=== PATIENT | female | born 1995 | race African-American/Black ===

== ENCOUNTER 2021-03-30 10:58 | Emergency (ER) | payer MEDICAID, OTHER | END 2021-03-30 12:48 | disposition home or self-care (01) | LOC: CSHERS 10:58 | DX: O99.512 Diseases of the respiratory system complicating pregnancy, second trimester (principal); J10.1 Influenza due to other identified influenza virus with other respiratory manifestations; Z3A.22 22 weeks gestation of pregnancy | CPT/HCPCS: 87804; 99283 ==

== ENCOUNTER 2021-05-08 10:07 | Observation (INO) | payer OTHER ==
[2021-05-08] MEDS ORDERED: hydrALAZINE 20 MG/ML VIAL SLOW IVP PRN (10:59)
[2021-05-08 11:02] VITALS: BMI 44.8
[2021-05-08] MEDS: Acetaminophen 500 MG TAB PO PRN ×2 (11:08→21:28)
[2021-05-08] MEDS ORDERED: guaiFENesin ER 600 MG TAB PO SCH ×2 (12:00→21:00)
[2021-05-08] MEDS: Ondansetron ODT 4 MG TAB SL PRN (13:30)
[2021-05-08] MEDS ORDERED: Ondansetron PF 4 MG/2 ML Vial IVP PRN (14:48)
[2021-05-08] MEDS ORDERED: Lactated Ringer's 1,000 ML IV SCH (15:00)
[2021-05-08] MEDS ORDERED: Promethazine HCl 25 MG/ML VIAL IM SCH (15:00)
[2021-05-08] MEDS: Lactated Ringer's 1,000 ML IV SCH (18:00)
[2021-05-08] MEDS ORDERED: Docusate 100 MG CAP PO PRN (20:41)
[2021-05-08] MEDS ORDERED: Promethazine HCl 25 MG/ML VIAL IM PRN (20:41)
[2021-05-08] MEDS: guaiFENesin ER 600 MG TAB PO SCH (21:25)
[2021-05-09] MEDS: Lactated Ringer's 1,000 ML IV SCH ×3 (02:30→08:43)
[2021-05-09 08:37] VITALS: BP 128/58; TEMP 98
[2021-05-09] MEDS: guaiFENesin ER 600 MG TAB PO SCH (08:43)
[2021-05-09] MEDS: Ondansetron ODT 4 MG TAB SL PRN (08:43)
== END 2021-05-09 12:20 | disposition home health service (06) ==
LOC: CSHLD/OP 10:07 → CSHANTE 21:14 → INTOOBSV 21:14
PROVIDERS: ADMIT Emergency Medicine; ATTEND Emergency Medicine
DX: O98.512 Other viral diseases complicating pregnancy, second trimester (principal); U07.1 COVID-19; O21.2 Late vomiting of pregnancy; Z3A.27 27 weeks gestation of pregnancy
CPT/HCPCS: 96372; G0378; J2550; J7120; Q0162

== ENCOUNTER 2021-06-19 23:48 | Day surgery (SDC) | payer OTHER ==
[2021-06-20] MEDS ORDERED: hydrALAZINE 20 MG/ML VIAL SLOW IVP PRN (00:43)
[2021-06-20] MEDS ORDERED: Acetaminophen 500 MG TAB PO PRN (01:29)
[2021-06-20] MEDS ORDERED: Lactated Ringer's 1,000 ML IV SCH (01:30)
[2021-06-20 03:07] LABS: ALT (SGPT) 7 U/L (8-55); AST (SGOT) 9 U/L (5-34); Albumin 3.1 g/dL (3.5-5.0); Alkaline Phosphatase 90 U/L (40-110); Anion Gap 12 mmol/L (10-20); BUN (Urea Nitrogen) 5 mg/dL (7.0-18.7); Bilirubin, Total 0.2 mg/dL (0.2-1.2); Calc. Creatinine Clearance 0 mL/min (70-130); Calcium 8.5 mg/dL (7.8-10.44); Carbon Dioxide 25 mmol/L (22-29); Chloride 104 mmol/L (98-107); Glucose 82 mg/dL (70-105); Potassium 3.1 mmol/L (3.5-5.1); Protein, Total 6.1 g/dL (6.0-8.3); Sodium 138 mmol/L (136-145)
[2021-06-20 03:11] LABS: #Basophils 0.1 10x3/uL (0.0-0.2); #Eosinphils 0.2 10x3/uL (0.0-0.5); #Monocytes 0.6 10x3/uL (0.0-1.1); #Neutrophils 4.9 10x3/uL (1.5-8.4); %Basophils 0.8 % (0.0-2.0); %Eosinophils 1.7 % (0.0-6.0); %Lymphocytes 38.3 % (18.0-47.0); %Monocytes 5.9 % (0.0-10.0); Hemoglobin 10.5 g/dL (12.0-15.5); Mean Corpuscular HGB CONC 34.4 g/dL (32.0-36.0); Mean Corpuscular Hemoglobin 30.4 pg (27.0-33.0); Mean Corpuscular Volume 88.4 fl (81.6-98.3); Mean Platelet Volume 12.3 fl (7.4-10.4); Platelet Count 115 10x3/uL (150-450); RBC Distribution Width 13.2 % (11.5-14.5); Red Blood Cell (RBC) Count 3.45 10x6/uL (3.90-5.03); White Blood Cell (WBC) Count 9.3 10x3/uL (3.5-10.5)
== END 2021-06-20 07:11 | disposition home or self-care (01) ==
LOC: CSHLD/OP 23:48
PROVIDERS: ATTEND Student in an Organized Health Care Education/Training Program
DX: O10.913 Unspecified pre-existing hypertension complicating pregnancy, third trimester (principal); O99.891 Other specified diseases and conditions complicating pregnancy; H53.8 Other visual disturbances; R10.11 Right upper quadrant pain; O09.213 Supervision of pregnancy with history of pre-term labor, third trimester; Z3A.33 33 weeks gestation of pregnancy
CPT/HCPCS: 80053; 81003; 82570; 85025; 96360; 96361; 99283

== ENCOUNTER 2022-07-17 22:11 | Inpatient (IN) | payer OTHER ==
[2022-07-17] MEDS ORDERED: Acetaminophen 500 MG TAB PO PRN (22:17)
[2022-07-17] MEDS ORDERED: hydrALAZINE 20 MG/ML VIAL SLOW IVP PRN (22:17)
[2022-07-17] MEDS ORDERED: Promethazine HCl 25 MG/ML VIAL IM PRN (22:17)
[2022-07-17] MEDS ORDERED: Butorphanol Tartrate 1 MG/ML VIAL SLOW IVP PRN (22:17)
[2022-07-17 22:32] VITALS: BMI 50.9
[2022-07-17] MEDS ORDERED: Fentanyl 100 MCG/2 ML VIAL ONE (23:02)
[2022-07-17] MEDS ORDERED: Lactated Ringer's 1,000 ML IV SCH (23:30)
[2022-07-17] MEDS ORDERED: Aspirin 81 mg Enteric Coated Tablet PO SCH (23:59)
[2022-07-18] MEDS ORDERED: Lactated Ringer's 1,000 ML IV SCH (00:30)
[2022-07-18] MEDS: Cefepime 2 GM in Sodium Chloride 0.9% 100 ML IVPB SCH ×3 (01:54→18:23)
[2022-07-18] MEDS: Fentanyl 100 MCG/2 ML VIAL SLOW IVP PRN ×9 (02:04→23:30)
[2022-07-18] MEDS: VANCOMYCIN 1.5 GM in Sodium Chloride 0.9% 500 ML IVPB SCH ×3 (02:44→19:14)
[2022-07-18] MEDS ORDERED: Lidocaine 1% (PF) 30 ML VIAL ONE (03:15)
[2022-07-18 04:33] LABS: #Basophils 0.1 10x3/uL (0.0-0.2); #Eosinphils 0.1 10x3/uL (0.0-0.5); #Monocytes 1.2 10x3/uL (0.0-1.1); #Neutrophils 13.2 10x3/uL (1.5-8.4); %Basophils 0.3 % (0.0-2.0); %Eosinophils 0.8 % (0.0-6.0); %Lymphocytes 15.2 % (18.0-47.0); %Monocytes 7.1 % (0.0-10.0); Hemoglobin 10.3 g/dL (12.0-15.5); Mean Corpuscular HGB CONC 33.3 g/dL (32.0-36.0); Mean Corpuscular Hemoglobin 28.5 pg (27.0-33.0); Mean Corpuscular Volume 85.4 fl (81.6-98.3); Mean Platelet Volume 12.3 fl (7.4-10.4); Platelet Count 131 10x3/uL (150-450); RBC Distribution Width 12.8 % (11.5-14.5); Red Blood Cell (RBC) Count 3.62 10x6/uL (3.90-5.03); White Blood Cell (WBC) Count 17.4 10x3/uL (3.5-10.5)
[2022-07-18 04:49] LABS: ALT (SGPT) 36 U/L (8-55); AST (SGOT) 40 U/L (5-34); Albumin 3.2 g/dL (3.5-5.0); Alkaline Phosphatase 128 U/L (40-110); Anion Gap 14 mmol/L (10-20); BUN (Urea Nitrogen) Less than 4 mg/dL (7.0-18.7); Bilirubin, Total 1.2 mg/dL (0.2-1.2); Calc. Creatinine Clearance 286 mL/min (70-130); Calcium 8.6 mg/dL (7.8-10.44); Carbon Dioxide 19 mmol/L (22-29); Chloride 104 mmol/L (98-107); Estimated GFR 125; Globulin 3.5 g/dL (2.4-3.5); Glucose 119 mg/dL (70-105); Protein, Total 6.7 g/dL (6.0-8.3); Sodium 134 mmol/L (136-145)
[2022-07-18] MEDS: Potassium Chloride 20 MEQ in Premix Bag 1 BAG IVPB SCH ×3 (08:00→11:48)
[2022-07-18] MEDS ORDERED: Potassium Chloride 20 MEQ in Premix Bag 1 BAG IVPB SCH ×2 (08:00→13:00)
[2022-07-18] MEDS: Aspirin 81 mg Enteric Coated Tablet PO SCH (08:51)
[2022-07-18] MEDS: Prenatal Vitamin 1 TAB PO SCH (08:51)
[2022-07-18] MEDS ORDERED: Sodium Chloride 0.9% 100 ML ONE (10:59)
[2022-07-18] MEDS: Lactated Ringer's 1,000 ML IV SCH ×2 (11:45→15:39)
[2022-07-18] MEDS ORDERED: Potassium Bicarbonate/Cit Ac 20 MEQ TAB PO SCH (12:00)
[2022-07-18] MEDS: Ondansetron PF 4 MG/2 ML Vial IVP PRN ×2 (12:23→20:50)
[2022-07-18 18:25] LABS: Vancomycin, Trough 13.9 ug/mL
[2022-07-19] MEDS: Cefepime 2 GM in Sodium Chloride 0.9% 100 ML IVPB SCH ×3 (01:23→17:49)
[2022-07-19] MEDS ORDERED: Famotidine 20 MG TAB PO SCH ×2 (02:00→20:00)
[2022-07-19] MEDS: Lactated Ringer's 1,000 ML IV SCH ×4 (02:03→20:45)
[2022-07-19] MEDS: VANCOMYCIN 1.5 GM in Sodium Chloride 0.9% 500 ML IVPB SCH ×3 (02:37→18:36)
[2022-07-19 04:17] LABS: ALT (SGPT) 36 U/L (8-55); AST (SGOT) 34 U/L (5-34); Albumin 2.9 g/dL (3.5-5.0); Alkaline Phosphatase 114 U/L (40-110); Anion Gap 13 mmol/L (10-20); BUN (Urea Nitrogen) Less than 4 mg/dL (7.0-18.7); Bilirubin, Total 0.7 mg/dL (0.2-1.2); Calc. Creatinine Clearance 290 mL/min (70-130); Calcium 8.7 mg/dL (7.8-10.44); Carbon Dioxide 20 mmol/L (22-29); Chloride 108 mmol/L (98-107); Estimated GFR 125; Globulin 3.3 g/dL (2.4-3.5); Glucose 115 mg/dL (70-105); Potassium 3.1 mmol/L (3.5-5.1); Protein, Total 6.2 g/dL (6.0-8.3); Sodium 138 mmol/L (136-145)
[2022-07-19 04:22] LABS: #Basophils 0.1 10x3/uL (0.0-0.2); #Eosinphils 0.3 10x3/uL (0.0-0.5); #Monocytes 0.7 10x3/uL (0.0-1.1); #Neutrophils 8.1 10x3/uL (1.5-8.4); %Basophils 0.5 % (0.0-2.0); %Eosinophils 2.2 % (0.0-6.0); %Lymphocytes 24.2 % (18.0-47.0); %Monocytes 5.8 % (0.0-10.0); %Neutrophils 66.7 % (40.0-75.0); Hemoglobin 9.7 g/dL (12.0-15.5); Mean Corpuscular HGB CONC 33.1 g/dL (32.0-36.0); Mean Corpuscular Hemoglobin 28.8 pg (27.0-33.0); Mean Corpuscular Volume 86.9 fl (81.6-98.3); Mean Platelet Volume 12.4 fl (7.4-10.4); Platelet Count 127 10x3/uL (150-450); RBC Distribution Width 13.1 % (11.5-14.5); Red Blood Cell (RBC) Count 3.37 10x6/uL (3.90-5.03); White Blood Cell (WBC) Count 11.9 10x3/uL (3.5-10.5)
[2022-07-19] MEDS: Fentanyl 100 MCG/2 ML VIAL SLOW IVP PRN ×2 (04:26→07:32)
[2022-07-19] MEDS: Prenatal Vitamin 1 TAB PO SCH (07:33)
[2022-07-19] MEDS: Aspirin 81 mg Enteric Coated Tablet PO SCH (07:34)
[2022-07-19] MEDS ORDERED: Potassium Chloride 20 MEQ TAB PO SCH (08:15)
[2022-07-19] MEDS ORDERED: Potassium Bicarbonate/Cit Ac 20 MEQ TAB PO SCH (09:00)
[2022-07-19 09:18] LABS: Magnesium 1.6 mg/dL (1.6-2.6)
[2022-07-19] MEDS: HYDROcodone/Acetaminophen 5/325 mg Tablet PO PRN ×2 (09:21→16:09)
[2022-07-19] MEDS ORDERED: Acetaminophen 500 MG TAB PO SCH (14:00)
[2022-07-19] MEDS ORDERED: Calcium Carbonate 500 MG ChewTAB PO PRN (19:57)
[2022-07-19] MEDS ORDERED: Calcium Carbonate 500 MG ChewTAB PO SCH (20:00)
[2022-07-19] MEDS: Ondansetron PF 4 MG/2 ML Vial IVP PRN (20:08)
[2022-07-19] MEDS: Acetaminophen 500 MG TAB PO PRN (23:30)
[2022-07-20] MEDS: Lactated Ringer's 1,000 ML IV SCH (00:15)
[2022-07-20 01:57] LABS: Vancomycin, Trough 15.5 ug/mL
[2022-07-20] MEDS: Cefepime 2 GM in Sodium Chloride 0.9% 100 ML IVPB SCH (02:16)
[2022-07-20] MEDS: VANCOMYCIN 1.5 GM in Sodium Chloride 0.9% 500 ML IVPB SCH (03:21)
[2022-07-20 04:25] LABS: #Basophils 0.1 10x3/uL (0.0-0.2); #Eosinphils 0.4 10x3/uL (0.0-0.5); #Monocytes 0.6 10x3/uL (0.0-1.1); #Neutrophils 4.3 10x3/uL (1.5-8.4); %Basophils 0.6 % (0.0-2.0); %Eosinophils 4.6 % (0.0-6.0); %Lymphocytes 36.5 % (18.0-47.0); %Monocytes 7.4 % (0.0-10.0); %Neutrophils 50.2 % (40.0-75.0); Hemoglobin 9.3 g/dL (12.0-15.5); Mean Corpuscular HGB CONC 33.5 g/dL (32.0-36.0); Mean Corpuscular Hemoglobin 28.9 pg (27.0-33.0); Mean Corpuscular Volume 86.3 fl (81.6-98.3); Mean Platelet Volume 12.1 fl (7.4-10.4); Platelet Count 119 10x3/uL (150-450); RBC Distribution Width 12.7 % (11.5-14.5); Red Blood Cell (RBC) Count 3.22 10x6/uL (3.90-5.03); White Blood Cell (WBC) Count 8.6 10x3/uL (3.5-10.5)
[2022-07-20 04:37] LABS: ALT (SGPT) 28 U/L (8-55); AST (SGOT) 23 U/L (5-34); Albumin 2.6 g/dL (3.5-5.0); Alkaline Phosphatase 112 U/L (40-110); Anion Gap 12 mmol/L (10-20); BUN (Urea Nitrogen) Less than 4 mg/dL (7.0-18.7); Bilirubin, Total 0.5 mg/dL (0.2-1.2); Calc. Creatinine Clearance 286 mL/min (70-130); Calcium 8.4 mg/dL (7.8-10.44); Carbon Dioxide 24 mmol/L (22-29); Chloride 107 mmol/L (98-107); Estimated GFR 125; Globulin 3.2 g/dL (2.4-3.5); Glucose 87 mg/dL (70-105); Potassium 3.2 mmol/L (3.5-5.1); Protein, Total 5.8 g/dL (6.0-8.3); Sodium 140 mmol/L (136-145)
[2022-07-20 07:37] VITALS: BP 121/70; TEMP 98.5
[2022-07-20] MEDS ORDERED: Clindamycin 150 MG CAP PO SCH (09:00)
[2022-07-20] MEDS ORDERED: Labetalol HCl 100 MG TAB PO SCH (09:00)
[2022-07-20] MEDS ORDERED: Potassium Chloride 20 MEQ TAB PO SCH (09:00)
[2022-07-20] MEDS: Acetaminophen 500 MG TAB PO PRN (10:28)
[2022-07-20] MEDS: Prenatal Vitamin 1 TAB PO SCH (10:29)
[2022-07-20] MEDS: Aspirin 81 mg Enteric Coated Tablet PO SCH (10:29)
== END 2022-07-20 11:15 | disposition home or self-care (01) | DRG 817 ==
LOC: CSHLD/OP 22:11 → CSHLD 22:17 → OBSVTOIN 22:18 → CSHLD 07-18 00:19 → UNDOADMOB 07-18 00:19 → CSHLD 07-18 05:54 → CSHANTE 07-18 05:54
PROVIDERS: ADMIT Family Medicine; ATTEND Family Medicine
PROC: 0C900ZZ Drainage of Upper Lip, Open Approach (ICD-10-PCS; principal; 2022-07-18)
PROC: 3E03329 Introduction of Other Anti-infective into Peripheral Vein, Percutaneous Approach (ICD-10-PCS; 2022-07-18)
DX: O98.813 Other maternal infectious and parasitic diseases complicating pregnancy, third trimester (principal); A41.9 Sepsis, unspecified organism; L02.01 Cutaneous abscess of face; L03.211 Cellulitis of face; O10.913 Unspecified pre-existing hypertension complicating pregnancy, third trimester; O99.113 Other diseases of the blood and blood-forming organs and certain disorders involving the immune mechanism complicating pregnancy, third trimester; O99.713 Diseases of the skin and subcutaneous tissue complicating pregnancy, third trimester; O99.213 Obesity complicating pregnancy, third trimester; O99.343 Other mental disorders complicating pregnancy, third trimester; O99.353 Diseases of the nervous system complicating pregnancy, third trimester; F90.9 Attention-deficit hyperactivity disorder, unspecified type; D69.6 Thrombocytopenia, unspecified; E66.9 Obesity, unspecified; K13.0 Diseases of lips; O43.893 Other placental disorders, third trimester; E87.6 Hypokalemia; G43.909 Migraine, unspecified, not intractable, without status migrainosus; O99.820 Streptococcus B carrier state complicating pregnancy; Z79.899 Other long term (current) drug therapy; Z98.890 Other specified postprocedural states; Z3A.36 36 weeks gestation of pregnancy
CPT/HCPCS: 10060; 36415; 80053; 80202; 83735; 85025; 97139; 99285; J0595; J0692; J2405; J3010; J3480; J3490; J7030; J7120

== ENCOUNTER 2022-07-25 18:00 | Inpatient (IN) | payer OTHER ==
[2022-07-26 03:24] VITALS: BMI 50.9
[2022-07-26] MEDS ORDERED: Misoprostol 200 MCG TAB PR PRN (03:54)
[2022-07-26] MEDS ORDERED: Lidocaine 1% (PF) 30 ML VIAL SC PRN (03:54)
[2022-07-26] MEDS ORDERED: Acetaminophen 500 MG TAB PO PRN (03:54)
[2022-07-26] MEDS ORDERED: Promethazine HCl 25 MG/ML VIAL IM PRN ×2 (03:54→06:01)
[2022-07-26] MEDS ORDERED: Ondansetron PF 4 MG/2 ML Vial IVP PRN ×3 (03:54→16:56)
[2022-07-26] MEDS ORDERED: hydrALAZINE 20 MG/ML VIAL SLOW IVP PRN ×2 (03:54→16:56)
[2022-07-26] MEDS ORDERED: Carboprost 250 MCG/ML AMP IM PRN (03:54)
[2022-07-26] MEDS ORDERED: Tranexamic Acid 1,000 MG/10 ML VIAL IVP PRN (03:54)
[2022-07-26] MEDS ORDERED: Penicillin G Potassium 5 MILL.UNITS in Sodium Chloride 0.9% 100 ML IVPB SCH (04:00)
[2022-07-26] MEDS ORDERED: NS w/ Oxytocin 30 units 500 ML IV SCH ×3 (04:00→16:56)
[2022-07-26] MEDS ORDERED: Lactated Ringer's 1,000 ML IV SCH (04:00)
[2022-07-26 04:17] LABS: Hemoglobin 10.4 g/dL (12.0-15.5); Mean Corpuscular HGB CONC 33.7 g/dL (32.0-36.0); Mean Corpuscular Hemoglobin 28.6 pg (27.0-33.0); Mean Corpuscular Volume 84.9 fl (81.6-98.3); Mean Platelet Volume 12.2 fl (7.4-10.4); Platelet Count 160 10x3/uL (150-450); RBC Distribution Width 12.8 % (11.5-14.5); Red Blood Cell (RBC) Count 3.64 10x6/uL (3.90-5.03); White Blood Cell (WBC) Count 9.1 10x3/uL (3.5-10.5)
[2022-07-26 04:43] LABS: ALT (SGPT) 110 U/L (8-55); AST (SGOT) 117 U/L (5-34); Albumin 3.3 g/dL (3.5-5.0); Alkaline Phosphatase 129 U/L (40-110); Anion Gap 15 mmol/L (10-20); BUN (Urea Nitrogen) 5 mg/dL (7.0-18.7); Bilirubin, Total 0.5 mg/dL (0.2-1.2); Calc. Creatinine Clearance 294 mL/min (70-130); Calcium 8.9 mg/dL (7.8-10.44); Carbon Dioxide 21 mmol/L (22-29); Chloride 106 mmol/L (98-107); Estimated GFR 126; Globulin 3.2 g/dL (2.4-3.5); Glucose 85 mg/dL (70-105); Potassium 3.5 mmol/L (3.5-5.1); Protein, Total 6.5 g/dL (6.0-8.3); Sodium 138 mmol/L (136-145)
[2022-07-26] MEDS ORDERED: Fentanyl 2 mcg/Bup 0.1% Cadd 100 ML ONE (05:00)
[2022-07-26 05:03] LABS: HBSAg Index 0.14 S/CO (0-0.99); Hep B Surf Ag - L&D Non-Reactive S/CO (NonReactive); Syphilis Antibody Nonreactive (Nonreactive); Syphilis Antibody Index 0.03 S/CO (<1.00 Non-Reactive)
[2022-07-26] MEDS ORDERED: Naloxone HCl 0.4 mg/ml Vial IVP PRN ×2 (06:01)
[2022-07-26] MEDS ORDERED: ePHEDrine Sulfate 50 MG/10 ML VIAL SLOW IVP PRN (06:01)
[2022-07-26] MEDS ORDERED: Lactated Ringer's 500 ML IV PRN (06:01)
[2022-07-26] MEDS ORDERED: Acetaminophen 325 MG TAB PO PRN (06:01)
[2022-07-26] MEDS ORDERED: diphenhydrAMINE 50 MG/ML VIAL IVP PRN (06:01)
[2022-07-26] MEDS ORDERED: Moisturizing Cream (Eucerin) 113 GM JAR TOP PRN (06:01)
[2022-07-26] MEDS ORDERED: Communication Order-Pharmacy FS SCH (06:15)
[2022-07-26] MEDS ORDERED: Fentanyl 2 mcg/Bupivacaine 0.1% Cassette 100 ML EPIDURAL SCH (06:15)
[2022-07-26] MEDS: Penicillin G 2.5 MILL.units 2.5 MILL.UNITS in Premix Bag 1 BAG IVPB SCH ×2 (08:04→12:01)
[2022-07-26] MEDS ORDERED: Labetalol HCl 100 MG TAB PO SCH (09:00)
[2022-07-26] MEDS ORDERED: Aspirin 81 mg Enteric Coated Tablet PO SCH (09:00)
[2022-07-26] MEDS ORDERED: Prenatal Vitamin 1 TAB PO SCH (09:00)
[2022-07-26 12:44] LABS: Creatinine, Urine 282.69 mg/dL (47-110)
[2022-07-26 12:56] LABS: Hemoglobin 10.1 g/dL (12.0-15.5); Mean Corpuscular HGB CONC 32.8 g/dL (32.0-36.0); Mean Corpuscular Hemoglobin 28.5 pg (27.0-33.0); Mean Corpuscular Volume 86.8 fl (81.6-98.3); Mean Platelet Volume 11.9 fl (7.4-10.4); Platelet Count 153 10x3/uL (150-450); RBC Distribution Width 13.2 % (11.5-14.5); Red Blood Cell (RBC) Count 3.55 10x6/uL (3.90-5.03); White Blood Cell (WBC) Count 9.2 10x3/uL (3.5-10.5)
[2022-07-26 13:11] LABS: ALT (SGPT) 116 U/L (8-55); AST (SGOT) 122 U/L (5-34); Albumin 3.3 g/dL (3.5-5.0); Alkaline Phosphatase 127 U/L (40-110); Anion Gap 14 mmol/L (10-20); BUN (Urea Nitrogen) 5 mg/dL (7.0-18.7); Bilirubin, Total 0.6 mg/dL (0.2-1.2); Calc. Creatinine Clearance 277 mL/min (70-130); Calcium 8.7 mg/dL (7.8-10.44); Carbon Dioxide 23 mmol/L (22-29); Chloride 104 mmol/L (98-107); Estimated GFR 124; Globulin 3.6 g/dL (2.4-3.5); Glucose 75 mg/dL (70-105); Potassium 3.4 mmol/L (3.5-5.1); Protein, Total 6.9 g/dL (6.0-8.3); Sodium 138 mmol/L (136-145)
[2022-07-26] MEDS ORDERED: diphenhydrAMINE 25 MG CAP PO PRN (16:56)
[2022-07-26] MEDS ORDERED: Bisacodyl 10 MG SUPP PR PRN (16:56)
[2022-07-26] MEDS ORDERED: Benzocaine-Menthol 82.5 ML CAN TOP PRN (16:56)
[2022-07-26] MEDS ORDERED: Preparation H Ointment 28 GM TUBE PR PRN (16:56)
[2022-07-26] MEDS ORDERED: Misoprostol 200 MCG TAB VAG PRN (16:56)
[2022-07-26] MEDS ORDERED: Milk Of Magnesia 30 ML UDCUP PO PRN (16:56)
[2022-07-26] MEDS ORDERED: Boostrix 0.5 ML (Tdap) VIAL (>/=7 yrs of age) IM ONE (16:56)
[2022-07-26] MEDS ORDERED: Lanolin Ointment 7 GM TUBE TOP PRN (16:56)
[2022-07-26] MEDS: Ferrous Sulfate 325 MG TAB PO SCH (17:52)
[2022-07-26] MEDS: Ibuprofen 800 MG TAB PO SCH (20:28)
[2022-07-26] MEDS: Docusate 100 MG CAP PO SCH (20:28)
[2022-07-27 05:17] LABS: PTT 26.9 sec (22.0-33.0); Prothrombin Time 10.5 sec (9.5-12.1)
[2022-07-27 05:21] LABS: ALT (SGPT) 95 U/L (8-55); AST (SGOT) 91 U/L (5-34); Albumin 2.7 g/dL (3.5-5.0); Alkaline Phosphatase 106 U/L (40-110); Anion Gap 14 mmol/L (10-20); BUN (Urea Nitrogen) 4 mg/dL (7.0-18.7); Bilirubin, Total 0.5 mg/dL (0.2-1.2); Calc. Creatinine Clearance 262 mL/min (70-130); Calcium 8.8 mg/dL (7.8-10.44); Carbon Dioxide 24 mmol/L (22-29); Chloride 105 mmol/L (98-107); Estimated GFR 119; Globulin 3.1 g/dL (2.4-3.5); Glucose 73 mg/dL (70-105); Potassium 3.9 mmol/L (3.5-5.1); Protein, Total 5.8 g/dL (6.0-8.3); Sodium 139 mmol/L (136-145)
[2022-07-27 05:32] LABS: #Basophils 0.1 10x3/uL (0.0-0.2); #Eosinphils 0.3 10x3/uL (0.0-0.5); #Monocytes 0.8 10x3/uL (0.0-1.1); #Neutrophils 7.9 10x3/uL (1.5-8.4); %Basophils 0.6 % (0.0-2.0); %Eosinophils 2.4 % (0.0-6.0); %Lymphocytes 29.4 % (18.0-47.0); %Monocytes 5.9 % (0.0-10.0); %Neutrophils 61.4 % (40.0-75.0); Hemoglobin 10.4 g/dL (12.0-15.5); Mean Corpuscular HGB CONC 32.8 g/dL (32.0-36.0); Mean Corpuscular Hemoglobin 28.3 pg (27.0-33.0); Mean Corpuscular Volume 86.1 fl (81.6-98.3); Mean Platelet Volume 12.3 fl (7.4-10.4); Platelet Count 151 10x3/uL (150-450); Red Blood Cell (RBC) Count 3.68 10x6/uL (3.90-5.03); White Blood Cell (WBC) Count 12.8 10x3/uL (3.5-10.5)
[2022-07-27] MEDS: Ibuprofen 800 MG TAB PO SCH ×4 (06:30→21:55)
[2022-07-27] MEDS: Clindamycin 150 MG CAP PO SCH ×3 (07:41→21:51)
[2022-07-27] MEDS: Docusate 100 MG CAP PO SCH ×2 (07:41→21:51)
[2022-07-27] MEDS: Prenatal Vitamin 1 TAB PO SCH (07:42)
[2022-07-27] MEDS: Labetalol HCl 100 MG TAB PO SCH ×3 (07:42→21:55)
[2022-07-27] MEDS: Ferrous Sulfate 325 MG TAB PO SCH ×2 (07:51→21:52)
[2022-07-27 13:35] LABS: HBCM Index 0.08 S/CO (0-0.79); HBSAg Index 0.43 S/CO (0-0.99); Hep A IgM AB Non-Reactive (NonReactive); Hep A IgM S/CO 0.17 S/CO (0-0.79); Hep B Surf Ag Non-Reactive S/CO (NonReactive); Hep C IgG Ab Non-Reactive (NonReactive); Hepatitis B Core IgM Abs Non-Reactive (NonReactive)
[2022-07-28] MEDS: Docusate 100 MG CAP PO SCH ×2 (00:12→07:41)
[2022-07-28] MEDS ORDERED: Labetalol HCl 100 MG/20 ML VIAL SLOW IVP SCH (00:15)
[2022-07-28 00:53] LABS: Hemoglobin 10.3 g/dL (12.0-15.5); Mean Corpuscular HGB CONC 33.2 g/dL (32.0-36.0); Mean Corpuscular Hemoglobin 28.5 pg (27.0-33.0); Mean Corpuscular Volume 85.6 fl (81.6-98.3); Mean Platelet Volume 11.9 fl (7.4-10.4); Platelet Count 171 10x3/uL (150-450); RBC Distribution Width 13.2 % (11.5-14.5); Red Blood Cell (RBC) Count 3.62 10x6/uL (3.90-5.03); White Blood Cell (WBC) Count 11.8 10x3/uL (3.5-10.5)
[2022-07-28 00:59] LABS: ALT (SGPT) 99 U/L (8-55); AST (SGOT) 84 U/L (5-34); Albumin 3.2 g/dL (3.5-5.0); Alkaline Phosphatase 107 U/L (40-110); Anion Gap 13 mmol/L (10-20); BUN (Urea Nitrogen) 5 mg/dL (7.0-18.7); Bilirubin, Total 0.4 mg/dL (0.2-1.2); Calc. Creatinine Clearance 262 mL/min (70-130); Calcium 8.9 mg/dL (7.8-10.44); Carbon Dioxide 24 mmol/L (22-29); Chloride 106 mmol/L (98-107); Estimated GFR 119; Globulin 3.3 g/dL (2.4-3.5); Glucose 85 mg/dL (70-105); Potassium 3.7 mmol/L (3.5-5.1); Protein, Total 6.5 g/dL (6.0-8.3); Sodium 139 mmol/L (136-145)
[2022-07-28] MEDS: Ibuprofen 800 MG TAB PO SCH ×2 (05:18→13:26)
[2022-07-28] MEDS: Prenatal Vitamin 1 TAB PO SCH (07:41)
[2022-07-28] MEDS: Ferrous Sulfate 325 MG TAB PO SCH (07:41)
[2022-07-28] MEDS ORDERED: Hydrochlorothiazide 25 MG TAB PO SCH (09:00)
[2022-07-28] MEDS ORDERED: Labetalol HCl 200 MG TAB PO SCH (09:00)
[2022-07-28] MEDS ORDERED: Amlodipine 10 MG TAB PO SCH (09:00)
[2022-07-28 10:00] LABS: Creatinine, Urine 108.53 mg/dL (47-110)
[2022-07-28 11:18] VITALS: BP 142/87; TEMP 98.8
[2022-07-28 14:42] LABS: ALT (SGPT) 106 U/L (8-55); AST (SGOT) 90 U/L (5-34); Albumin 3.5 g/dL (3.5-5.0); Alkaline Phosphatase 112 U/L (40-110); Anion Gap 12 mmol/L (10-20); BUN (Urea Nitrogen) 4 mg/dL (7.0-18.7); Bilirubin, Total 0.5 mg/dL (0.2-1.2); Calc. Creatinine Clearance 265 mL/min (70-130); Calcium 9.5 mg/dL (7.8-10.44); Carbon Dioxide 27 mmol/L (22-29); Chloride 104 mmol/L (98-107); Estimated GFR 121; Globulin 3.7 g/dL (2.4-3.5); Glucose 78 mg/dL (70-105); Potassium 3.4 mmol/L (3.5-5.1); Protein, Total 7.2 g/dL (6.0-8.3); Sodium 140 mmol/L (136-145)
[2022-07-28 14:54] LABS: Hemoglobin 11.1 g/dL (12.0-15.5); Mean Corpuscular HGB CONC 32.8 g/dL (32.0-36.0); Mean Corpuscular Hemoglobin 28.1 pg (27.0-33.0); Mean Corpuscular Volume 85.6 fl (81.6-98.3); Mean Platelet Volume 11.9 fl (7.4-10.4); Platelet Count 191 10x3/uL (150-450); RBC Distribution Width 13.2 % (11.5-14.5); Red Blood Cell (RBC) Count 3.95 10x6/uL (3.90-5.03); White Blood Cell (WBC) Count 10.7 10x3/uL (3.5-10.5)
[2022-07-28 14:59] LABS: Eosinophils 3 % (0-10); Lymphocytes 20 % (21-51); Monocytes 4 % (0-10); Myelocyte 1 % (0-0)
[2022-07-28 15:01] LABS: Band 2 % (5-11)
[2022-07-28 15:03] LABS: Neutrophil 64 % (42-75); Reactive Lymphocytes 6 % (0-10)
[2022-07-28 15:04] LABS: Anisocytosis SLIGHT = 6-15 cells (100X) (0-5/hpf); Large Platelets MODERATE; Microcytosis SLIGHT = 6-15 cells (100X) (0-5/hpf); Platelet Morphology Comment Appears Adequate; Polychromasia SLIGHT = 2-3 cells (100X) (0-2/hpf)
[2022-07-28 15:06] LABS: MDiff Complete? YES
== END 2022-07-28 15:37 | disposition home or self-care (01) | DRG 806 ==
LOC: CSHLD 07-26 02:55 → CSHPP 07-26 17:15
PROVIDERS: ADMIT Obstetrics & Gynecology; ATTEND Obstetrics & Gynecology
PROC: 10E0XZZ Delivery of Products of Conception, External Approach (ICD-10-PCS; principal; 2022-07-26)
PROC: 10907ZC Drainage of Amniotic Fluid, Therapeutic from Products of Conception, Via Natural or Artificial Opening (ICD-10-PCS; 2022-07-26)
PROC: 10H07YZ Insertion of Other Device into Products of Conception, Via Natural or Artificial Opening (ICD-10-PCS; 2022-07-26)
DX: O10.92 Unspecified pre-existing hypertension complicating childbirth (principal); L02.01 Cutaneous abscess of face; Z37.0 Single live birth; L03.211 Cellulitis of face; O71.82 Other specified trauma to perineum and vulva; Z3A.37 37 weeks gestation of pregnancy; E66.9 Obesity, unspecified; O99.214 Obesity complicating childbirth; O99.824 Streptococcus B carrier state complicating childbirth; F90.9 Attention-deficit hyperactivity disorder, unspecified type; O99.344 Other mental disorders complicating childbirth; Z79.899 Other long term (current) drug therapy; O99.73 Diseases of the skin and subcutaneous tissue complicating the puerperium; R74.01 Elevation of levels of liver transaminase levels; O99.893 Other specified diseases and conditions complicating puerperium; O11.4 Pre-existing hypertension with pre-eclampsia, complicating childbirth
CPT/HCPCS: 36415; 51702; 80053; 80074; 82570; 84156; 85025; 85027; 85610; 85730; 86780; 86850; 86900; 86901; 87340; J2405; J2540; J2590; J3490

== ENCOUNTER 2024-01-10 23:01 | Inpatient (IN) | payer OTHER ==
[2024-01-10 23:18] VITALS: BMI 54.7
[2024-01-10] MEDS ORDERED: Lidocaine 1% (PF) 30 ML VIAL SC PRN (23:25)
[2024-01-10] MEDS ORDERED: Promethazine HCl 25 MG/ML VIAL IM PRN (23:25)
[2024-01-10] MEDS ORDERED: Carboprost 250 MCG/ML AMP IM PRN (23:25)
[2024-01-10] MEDS ORDERED: Diphenoxylate HCl/Atropine Tablet PO PRN (23:25)
[2024-01-10] MEDS ORDERED: Tranexamic Acid 1,000 MG/10 ML VIAL IVP PRN (23:25)
[2024-01-10] MEDS ORDERED: fentaNYL 50 mcg/mL 1 mL Vial SLOW IVP PRN (23:25)
[2024-01-10] MEDS ORDERED: Misoprostol 200 MCG TAB PR PRN (23:25)
[2024-01-10] MEDS ORDERED: Oxytocin 30 units/NS 500 ML 500 ML IV SCH (23:30)
[2024-01-10] MEDS ORDERED: Calcium Gluc 4.6 MEQ/10 ML (100 MG/ML) SLOW IVP PRN (23:48)
[2024-01-10] MEDS ORDERED: Lorazepam 2 MG/ML VIAL SLOW IVP PRN (23:48)
[2024-01-10] MEDS: hydrALAZINE 20 MG/ML VIAL SLOW IVP PRN (23:49)
[2024-01-10] MEDS: Magnesium Sulfate 20 gm/500 ml 20 GM/500 ML BAG ONE (23:52)
[2024-01-10] MEDS ORDERED: Labetalol HCl 100 MG/20 ML VIAL SLOW IVP PRN ×2 (23:57)
[2024-01-11] MEDS: Penicillin G Potassium 5 MILL.UNITS in Sodium Chloride 0.9% 100 ML IVPB SCH (00:17)
[2024-01-11] MEDS: Labetalol HCl 100 MG/20 ML VIAL SLOW IVP PRN (00:42)
[2024-01-11 00:46] LABS: ALT (SGPT) 15 U/L (8-55); AST (SGOT) 19 U/L (5-34); Alkaline Phosphatase 168 U/L (40-110); Anion Gap 13 mmol/L (10-20); BUN (Urea Nitrogen) 5 mg/dL (7.0-18.7); Bilirubin, Total 0.4 mg/dL (0.2-1.2); Calc. Creatinine Clearance 270 mL/min (70-130); Calcium 9.2 mg/dL (7.8-10.44); Carbon Dioxide 20 mmol/L (22-29); Chloride 105 mmol/L (98-107); Estimated GFR 118; Globulin 4.6 g/dL (2.4-3.5); Glucose 84 mg/dL (70-105); Potassium 2.7 mmol/L (3.5-5.1); Protein, Total 7.6 g/dL (6.0-8.3); Sodium 135 mmol/L (136-145)
[2024-01-11 01:18] LABS: HBsAg Index 0.25 S/CO (0-0.99); Hep B Surf Ag - L&D Non-Reactive S/CO (NonReactive)
[2024-01-11 01:19] LABS: Syphilis Antibody Nonreactive (Nonreactive); Syphilis Antibody Index 0.04 S/CO (<1.00 Non-Reactive)
[2024-01-11 01:34] LABS: Hematocrit 28.3 % (34.9-44.5); Hemoglobin 9.6 g/dL (12.0-15.5); Mean Corpuscular HGB CONC 33.9 g/dL (32.0-36.0); Mean Corpuscular Hemoglobin 27.7 pg (27.0-33.0); Mean Corpuscular Volume 81.6 fL (81.6-98.3); Mean Platelet Volume 11.7 fL (7.4-10.4); Platelet Count 136 10x3/uL (150-450); RBC Distribution Width 13.8 % (11.5-14.5); Red Blood Cell (RBC) Count 3.47 10x6/uL (3.90-5.03); White Blood Cell (WBC) Count 11.6 10x3/uL (3.5-10.5)
[2024-01-11 02:00] LABS: Creatinine, Urine 70.96 mg/dL (47-110)
[2024-01-11] MEDS: Labetalol HCl 100 MG TAB PO SCH ×2 (02:10→11:05)
[2024-01-11] MEDS: Acetaminophen 500 MG TAB PO PRN (02:11)
[2024-01-11 02:50] LABS: Band 3 % (5-11); Eosinophils 1 % (0-10); Lymphocytes 27 % (21-51); Monocytes 3 % (0-10); Neutrophil 66 % (42-75)
[2024-01-11 02:51] LABS: Platelet Adequacy Comment Appears Adequate; RBC Morph Comment Within Normal Limits
[2024-01-11 03:02] LABS: MDiff Complete? YES
[2024-01-11] MEDS: Penicillin G 2.5 MILL.units 2.5 MILL.UNITS in Premix 1 BAG IVPB SCH (04:10)
[2024-01-11] MEDS ORDERED: Lactated Ringer's 500 ML IV PRN (04:22)
[2024-01-11] MEDS ORDERED: Moisturizing Cream (Eucerin) 113 GM JAR TOP PRN (04:22)
[2024-01-11] MEDS ORDERED: Naloxone HCl 0.4 mg/ml Vial IVP PRN ×2 (04:22)
[2024-01-11] MEDS ORDERED: Promethazine HCl 25 MG/ML VIAL IM PRN ×2 (04:22→16:20)
[2024-01-11] MEDS ORDERED: ePHEDrine Sulfate 50 MG/10 ML VIAL SLOW IVP PRN (04:22)
[2024-01-11] MEDS ORDERED: Ondansetron PF 4 MG/2 ML Vial IVP PRN ×2 (04:22→16:20)
[2024-01-11] MEDS ORDERED: Acetaminophen 325 MG TAB PO PRN (04:22)
[2024-01-11] MEDS ORDERED: diphenhydrAMINE 50 MG/ML VIAL IVP PRN (04:22)
[2024-01-11] MEDS ORDERED: fentaNYL 2 mcg/Ropivacaine 0.2% Epidural 100 ML CADD EPIDURAL SCH (04:30)
[2024-01-11] MEDS ORDERED: Communication Order-Pharmacy FS SCH (04:30)
[2024-01-11] MEDS: Oxytocin 30 units/NS 500 ML 500 ML IV SCH ×2 (05:45→17:53)
[2024-01-11] MEDS: Ondansetron PF 4 MG/2 ML Vial IVP PRN (06:12)
[2024-01-11] MEDS: Lactated Ringer's 1,000 ML IV SCH (07:44)
[2024-01-11] MEDS: Potassium Chloride 20 MEQ in Premix 1 BAG IVPB SCH (08:09)
[2024-01-11] MEDS: Potassium Chloride 20 MEQ TAB PO SCH ×3 (08:09→23:24)
[2024-01-11] MEDS: Magnesium Sulfate 20 gm/500 ml 20 GM/500 ML BAG IVPB SCH (09:00)
[2024-01-11 11:02] LABS: Anion Gap 16 mmol/L (10-20); BUN (Urea Nitrogen) 4 mg/dL (7.0-18.7); Calc. Creatinine Clearance 300 mL/min (70-130); Calcium 8.5 mg/dL (7.8-10.44); Carbon Dioxide 18 mmol/L (22-29); Chloride 104 mmol/L (98-107); Estimated GFR 124; Glucose 82 mg/dL (70-105); Potassium 3.1 mmol/L (3.5-5.1); Sodium 135 mmol/L (136-145)
[2024-01-11] MEDS ORDERED: Bisacodyl 10 MG SUPP PR PRN (16:20)
[2024-01-11] MEDS ORDERED: Misoprostol 200 MCG TAB VAG PRN (16:20)
[2024-01-11] MEDS ORDERED: Preparation H Ointment 28 GM TUBE PR PRN (16:20)
[2024-01-11] MEDS ORDERED: hydrALAZINE 20 MG/ML VIAL SLOW IVP PRN (16:20)
[2024-01-11] MEDS ORDERED: Methylergonovine 0.2 MG/ML VIAL IM PRN (16:20)
[2024-01-11] MEDS ORDERED: Milk Of Magnesia 30 ML UDCUP PO PRN (16:20)
[2024-01-11] MEDS ORDERED: Benzocaine-Menthol 82.5 ML CAN TOP PRN (16:20)
[2024-01-11] MEDS ORDERED: Lanolin Ointment 7 GM TUBE TOP PRN (16:20)
[2024-01-11] MEDS ORDERED: diphenhydrAMINE 25 MG CAP PO PRN (16:20)
[2024-01-11] MEDS: Docusate 100 MG CAP PO SCH (19:37)
[2024-01-11] MEDS: Ibuprofen 800 MG TAB PO SCH (21:08)
[2024-01-12 04:34] LABS: Hematocrit 26.1 % (34.9-44.5); Hemoglobin 8.6 g/dL (12.0-15.5)
[2024-01-12 08:23] LABS: Potassium 3.4 mmol/L (3.5-5.1)
[2024-01-12] MEDS: Prenatal Vitamin 1 TAB PO SCH (08:59)
[2024-01-12] MEDS: Ferrous Sulfate 325 MG TAB PO SCH (08:59)
[2024-01-12] MEDS: Amlodipine 5 MG TAB PO SCH (10:01)
[2024-01-12 12:25] LABS: Group B Streptococcus by PCR Not Detected (NotDetected)
[2024-01-12] MEDS: Silver Nitrate Application 1 EACH ONE ×2 (16:31)
[2024-01-12] MEDS: Silver Nitrate Application 1 EACH TOP SCH (16:31)
[2024-01-12] MEDS: Potassium Chloride 20 MEQ TAB PO SCH (16:31)
[2024-01-12] MEDS: fentaNYL/Ropivacaine Epidural 100 ML ONE (16:33)
[2024-01-12] MEDS: Lactated Ringer's 500 ML IV SCH (16:33)
[2024-01-12] MEDS: Boostrix 0.5 ML (Tdap) VIAL (>/=7 yrs of age) IM ONE (17:14)
[2024-01-12] MEDS: Enoxaparin 60 MG (0.6 mL) SYRINGE SC SCH (18:22)
[2024-01-12 23:36] VITALS: TEMP 98
[2024-01-13] MEDS: Amlodipine 5 MG TAB PO SCH (09:14)
[2024-01-13 09:15] VITALS: BP 148/71
[2024-01-13] MEDS ORDERED: Enoxaparin 60 MG (0.6 mL) SYRINGE SC SCH (21:00)
== END 2024-01-13 11:32 | disposition home or self-care (01) | DRG 807 ==
LOC: CSHLD/OP 23:01 → CSHLD 23:28 → CSHPP 01-12 16:12
PROVIDERS: ADMIT Student in an Organized Health Care Education/Training Program; ATTEND Student in an Organized Health Care Education/Training Program
PROC: 10E0XZZ Delivery of Products of Conception, External Approach (ICD-10-PCS; principal; 2024-01-11)
PROC: 10H07YZ Insertion of Other Device into Products of Conception, Via Natural or Artificial Opening (ICD-10-PCS; 2024-01-11)
PROC: 10907ZC Drainage of Amniotic Fluid, Therapeutic from Products of Conception, Via Natural or Artificial Opening (ICD-10-PCS; 2024-01-11)
PROC: 0UQMXZZ Repair Vulva, External Approach (ICD-10-PCS; 2024-01-11)
DX: O99.214 Obesity complicating childbirth (principal); Z37.0 Single live birth; O10.92 Unspecified pre-existing hypertension complicating childbirth; E66.9 Obesity, unspecified; O14.14 Severe pre-eclampsia complicating childbirth; Z3A.36 36 weeks gestation of pregnancy; Z79.899 Other long term (current) drug therapy; E87.6 Hypokalemia; O99.285 Endocrine, nutritional and metabolic diseases complicating the puerperium; O71.82 Other specified trauma to perineum and vulva
CPT/HCPCS: 36415; 51702; 80053; 82570; 84132; 84156; 85014; 85018; 85025; 86780; 86850; 86900; 86901; 87340; 87653; 99285; J0360; J1650; J2405; J2540; J2590; J3475; J3480; J7120